=== PATIENT | female | born 1985 | race Hispanic/Latino ===

== ENCOUNTER 2018-03-03 21:29 | Emergency (ER) | payer BC, MEDICAID, OTHER ==
[2018-03-03] MEDS ORDERED: IBUPROFEN 800 MG TAB ONE (21:44)
[2018-03-03] MEDS ORDERED: DEXAMETHASONE SOD PHOSPHATE 10MG/ML 1ML VIAL ONE (21:44)
== END 2018-03-03 22:27 | disposition home or self-care (01) ==
LOC: EDH 21:29
DX: J06.9 Acute upper respiratory infection, unspecified (principal); Z98.890 Other specified postprocedural states
CPT/HCPCS: 87880; 96372; 99283; J1100